=== PATIENT | female | born 1960 | race Caucasian/White ===

== ENCOUNTER → 2020-07-08 | Outpatient (CLI) | payer SELFPAY | LOC: M LABSMTC 10:35 → EEVIPCON 10:35 | PROVIDERS: ATTEND Pediatrics | DX: Z11.59 Encounter for screening for other viral diseases (principal) ==

== ENCOUNTER → 2021-01-06 | Outpatient (CLI) | payer BC ==
--- NOTE | 2021-01-06 16:20 | REP ---
INDICATION: ACHILLES TENDINITIS COMPARISON: None. TECHNIQUE: AP, lateral, bilateral oblique views. FINDINGS: Generalized age-related degenerative changes are appreciated possible old healed fractures involving the medial and lateral malleoli. Talar dome and ankle mortise are intact and normal. No obvious acute fracture or dislocation is appreciated. Lateral view demonstrates small to moderate calcaneal heel spur along with calcification at the Achilles insertion with suggestions for mild thickening to the Achilles tendon itself. IMPRESSION: Degenerative changes. Mildly thickened distal Achilles tendon with calcifications at the insertion of the calcaneus raise the possibility of Achilles tendonitis. <Electronically signed by Dylan Renteria > 01/06/21 [id number]
--- NOTE | 2021-01-06 16:26 | REP ---
INDICATION: ACHILLES TENDINITIS COMPARISON: None. TECHNIQUE: Two orthogonal views of the calcaneus. FINDINGS: Calcaneus is intact and there is no evidence for acute fracture or dislocation. Lateral view demonstrates small to moderate calcaneal heel spur along with calcification at the Achilles insertion with suggestions for mild thickening. IMPRESSION: Findings suggest Achilles tendonitis. <Electronically signed by Dylan Renteria > 01/06/21 [id number]
== END ==
LOC: M WUC 15:33
PROVIDERS: ATTEND Physician Assistant
DX: M77.32 Calcaneal spur, left foot (principal); M19.072 Primary osteoarthritis, left ankle and foot; M76.62 Achilles tendinitis, left leg